=== PATIENT | male | born 1960 | race Caucasian/White ===

== ENCOUNTER 2016-10-03 09:59 | Day surgery (SDC) | payer OTHER ==
--- NOTE | 2016-10-03 07:58 | HP ---
DATE OF SURGERY: 10/03/2016 HISTORY OF PRESENT ILLNESS: The patient is a 56 year-old with irregular itching, nonhealing lesion posterior-lateral right neck area going on for two months increasing in size. He denies any prior x-ray. He denies any prior history of biopsy or skin cancer. He denies any radiation treatments in the neck. PAST MEDICAL HISTORY: Diabetes, hypertension, hyperlipidemia. PAST SURGICAL HISTORY: None. MEDICATIONS: Lisinopril, Crestor, Metformin, Tradjenta. ALLERGIES: NKDA. FAMILY HISTORY: Negative. SOCIAL HISTORY: One pack per day smoker. Denies or alcohol abuse. REVIEW OF SYSTEMS: Twelve systems reviewed per admission assessment. No chest pain or palpitations other systems negative or noncontributory as above and per preadmission questionnaire. PHYSICAL EXAMINATION: GENERAL: No acute distress. HEENT: Sclerae nonicteric. NECK: No JVD. Nonhealing irregular itching lesion posterior-lateral right neck area. CHEST: Equal excursion, nonlabored breathing. CVS: Regular rate and rhythm. ABDOMEN: Soft, nontender. EXTREMITIES: No significant edema. NEURO: Alert, moving extremities symmetrically. No gross motor deficits noted. IMPRESSION: Irregular itching, nonhealing neck lesion. I feel the patient has neoplasm of indeterminate significance or other etiology. I feel he would benefit from excisional biopsy. Risks and benefits explained in detail including but not limited to bleeding or infection, risk of wound dehiscence possibly requiring packing, risk should it be malignancy and has involved margins possibly requiring wider excision even at a later date, general risk of aches, pains, burning or numbness possible intermediate or chronic in nature, risk of sensory or motor nerve, scar formation, irritation, inflammation, risk of deficits but not limited to. He understands and agrees to the planned procedure and will proceed with outpatient excisional biopsy right neck nonhealing lesion neoplasm of indeterminate etiology.
[~2016-10-03 09:59] MED LIST: DIPRIVAN 200 MG/20 ML IV ONE; Ketamine HCl 50 MG/ML IV ONE; Lactated Ringers 1,000 ML IV ONE; Lactated Ringers 1,000 ML IV SCH; Versed 2 MG/2 ML Injection IV ONE; XYLOCAINE 1% HCL 20 ML MDV ONE
[2016-10-03] MEDS ORDERED: Lactated Ringers 1,000 ML IV ONE (10:06)
[2016-10-03 14:40] VITALS: O2SAT 98
[2016-10-03 15:09] VITALS: BP 130/74; PULSE 58
--- NOTE | 2016-10-04 10:58 | OP ---
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 PROCEDURE: Excisional biopsy right neck lesion with intermediate closure (approximately 1.8 cm with margins). SURGEON: Dr. Jossue Houston. BUSINESS SOLUTION ANALYST: Aishwarya Ontiveros, Medical Student III. ANESTHESIA: MAC. ESTIMATED BLOOD LOSS: Minimal. INDICATIONS: As noted above. Risks and benefits explained in detail and not limited to and consent obtained. DESCRIPTION OF PROCEDURE AND FINDINGS: The patient is taken to the operating room. The site had been confirmed with the patient in the preoperative holding area. MAC anesthesia introduced. Neck and chest prepped and draped in usual sterile fashion. After official time out and no disagreement with the planned procedure, marking out to normal appearing skin on either side with a spindle-shaped excision pattern. It was anesthetized with 1% Lidocaine local. Dissection carried down to normal appearing subcutaneous tissue beneath. It was carefully dissected free and then passed off with some pinpoint cautery. Good hemostasis noted. Flaps were mobilized towards the midline from either side with interrupted 3-0 Vicryl deep and superficial subcu. The skin was closed with 5-0 Vicryl running subcuticular fashion. Steri-Strips and sterile dressing applied. The patient tolerated the procedure well. There were no immediate complications. Findings discussed with the family out in the waiting area.
== END 2016-10-03 15:00 | disposition home or self-care (01) ==
LOC: SDC 09:59
PROVIDERS: ATTEND Surgery
PROC: 0HQ4XZZ Repair Neck Skin, External Approach (ICD-10-PCS; principal; 2016-10-03)
PROC: 0HB4XZX Excision of Neck Skin, External Approach, Diagnostic (ICD-10-PCS; 2016-10-03)
DX: C44.42 Squamous cell carcinoma of skin of scalp and neck (principal); R20.8 Other disturbances of skin sensation; E11.9 Type 2 diabetes mellitus without complications; I10 Essential (primary) hypertension; E78.5 Hyperlipidemia, unspecified; Z79.4 Long term (current) use of insulin; Z79.899 Other long term (current) drug therapy; Z72.0 Tobacco use
CPT/HCPCS: 00300; 36415; 88305; J2250; J2704

== ENCOUNTER 2020-09-07 08:34 | Day surgery (SDC) | payer OTHER ==
--- NOTE | 2020-09-07 07:48 | HP ---
DATE OF SURGERY: 09/07/2020 HISTORY OF PRESENT ILLNESS: The patient is a 60 year-old with no prior colonoscopy, no change in bowel movements, no pain and no bloody stools. Some choking episodes on occasion. He has had some issues which could be related to that. He denies any prior abdominal surgeries. Occasional choking episodes. He needs upper endoscopy for further evaluation. He also needs screening colonoscopy at the same time. PAST MEDICAL HISTORY: Diabetes mellitus type II. Hypertension. Hyperlipidemia. PAST SURGICAL HISTORY: He had a small mole removed from his neck in the past. 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 MEDICATIONS: Lisinopril, Metformin, Simvastatin, Tradjenta, low dose aspirin, Zyrtec. ALLERGIES: NKDA. FAMILY HISTORY: Negative in regards to this problem. SOCIAL HISTORY: One and a half pack per day smoker, occasional alcohol use. REVIEW OF SYSTEMS: Fourteen systems reviewed. No chest pain or palpitations. Other systems negative or noncontributory as above and per preadmission questionnaire. PHYSICAL EXAMINATION: GENERAL: No acute distress. HEENT: Sclerae nonicteric. NECK: No JVD. CHEST: Equal excursion. Breath sounds symmetrical bilaterally. CVS: Regular rate and rhythm. ABDOMEN: Soft. EXTREMITIES: No significant edema. NEURO: Alert, oriented, moving extremities symmetrically. PSYCH: Appropriate mood and affect. IMPRESSION: Some occasional choking episodes, needs upper endoscopy for further evaluation. If he has an isolated narrow area there is a small possibility of requiring dilatation. General risk of bleeding or infection. Risk of bowel injury or perforation possibly requiring further procedure. He also has not had a prior colonoscopy and he is in need of screening colonoscopy. I feel he is a candidate for that. Risks and benefits explained in detail including but not limited to bleeding or infection, risk of bowel injury or perforation possibly requiring open procedure, risk of missed or nondiagnosis or incomplete exam possibly requiring barium swallow/enema or other studies or procedures. He understands all the above but not limited, will proceed with EGD probable biopsy as well as colonoscopy as an outpatient.
[2020-09-07] MEDS ORDERED: Lactated Ringers 1,000 ML IV SCH (09:00)
[2020-09-07] MEDS ORDERED: DIPRIVAN 200 MG/20 ML IV ONE ×2 (11:23→11:36)
[2020-09-07] MEDS ORDERED: Xylocaine-Mpf 2% 5 Ml Vial ONE (11:36)
[2020-09-07 12:19] VITALS: O2SAT 99
[2020-09-07 12:42] VITALS: BP 129/74; PULSE 78
--- NOTE | 2020-09-08 08:46 | OP ---
SURGERY DATE/TIME: 09/07/2020 1124 PREOPERATIVE DIAGNOSES: 1) Need for screening colonoscopy. 2) Intermittent occasional choking need for upper endoscopy for further evaluation. POSTOPERATIVE DIAGNOSES: 1) Small polyps ascending colon. 2) Small early polyp versus hyperplastic lesion descending colon. 3) Few diverticula. 4) Fair bowel prep. 5) Small internal and external hemorrhoids. 6) Mild gastritis. 7) Short segment distal gastroesophagitis without any significant narrowing to warrant dilatation at this point. 8) Very tiny early gastric polyps versus variation of fold. PROCEDURES: 1) Colonoscopy to cecum. 2) Hot snare polypectomy ascending colon polyp. 3) Hot biopsy polypectomy small early polyp versus hyperplastic lesion descending colon. 4) EGD with cold biopsy of the antrum to evaluate for Helicobacter pylori. 5) Cold biopsy distal esophagus to evaluate esophagitis. 6) Cold biopsy small early fundal gland polyp path pending versus normal variation of mucosa. SURGEON: Dr. Jossue Houston. ANESTHESIA: MAC. ESTIMATED BLOOD LOSS: Minimal. INDICATIONS: As noted above. Risks and benefits explained in detail and not limited to and consent obtained. DESCRIPTION OF PROCEDURE AND FINDINGS: The patient is taken to the operating room. MAC anesthesia introduced. Bite block positioned. Video gastroscope easily passed down the esophagus through the patent pylorus to the junction of second and third portion of the duodenum. The third, second and first portion of the duodenum were grossly unremarkable. Back in the stomach, he had some mild gastritis cold biopsy taken for Helicobacter pylori. Good hemostasis noted. He had one small polyp in the fundus that was very tiny whether normal variation of mucosa, cold biopsy taken. Good hemostasis noted. On retroflex there was no significant evidence of hiatal hernia. Scope is straightened. Gastroesophageal junction noted at 40 cm. He did have some signs of some distal gastroesophagitis. There was no evidence of any obvious significant narrowing to warrant any dilatation at this point. Cold biopsy taken for path. Good hemostasis noted. The remainder of the esophagus no obvious esophageal mucosal lesion on withdrawal of the scope. Attention then turned to colonoscopy. On digital rectal exam he had some small internal and external hemorrhoids. Video colonoscope inserted and passed up through the slightly tortuous sigmoid, descending, transverse colon and ascending colon around to the cecum, appendiceal orifice and valve well visualized and photo documented. Prep overall was fair just a little bit of liquidy to semi-solid stool slightly limiting the exam for very tiny lesions this was suctioned irrigated as clear as possible. The scope was slowly and carefully withdrawn over the next 8 minutes. In the proximal ascending colon not too far downstream from the ileocecal valve a small polyp and a very small one adjacent to it was removed all at once as one polyp with hot snare polypectomy and brief bursts of cautery. It appeared to be completely removed. Good hemostasis noted. This appeared adenomatous in nature. Path pending. The scope is slowly and carefully withdrawn over the next 8 minutes. There were no signs of any other large polyps, masses or obstructing lesions. He had a very tiny early polyp versus hyperplastic lesion in the descending colon removed with hot biopsy forceps. Good hemostasis noted. He had a few tiny diverticula. He had small internal and external hemorrhoids. There were no signs of any other large polyps, masses or obstructing lesions. There were no immediate complications. Findings discussed with the family out in the waiting area. I will see him back in the office in a couple of weeks.
== END 2020-09-07 12:45 | disposition home or self-care (01) ==
LOC: SDC 08:34
PROVIDERS: ATTEND Surgery
DX: Z12.11 Encounter for screening for malignant neoplasm of colon (principal); R09.89 Other specified symptoms and signs involving the circulatory and respiratory systems; D12.2 Benign neoplasm of ascending colon; K64.4 Residual hemorrhoidal skin tags; K29.70 Gastritis, unspecified, without bleeding; K20.90 Esophagitis, unspecified without bleeding; K31.7 Polyp of stomach and duodenum; E11.9 Type 2 diabetes mellitus without complications; I10 Essential (primary) hypertension; E78.5 Hyperlipidemia, unspecified; Z79.899 Other long term (current) drug therapy
CPT/HCPCS: 82947; 88305; J2704